=== PATIENT | female | born 2005 | race Hispanic/Latino ===

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

== ENCOUNTER 2024-06-16 21:01 | Inpatient (IN) | payer MEDICAID ==
[~2024-06-16] VITALS: Ht 167.6 cm; Wt 94.8 kg
[~2024-06-16 21:01] MED LIST: ONDA-243 PO; PREN-61 PO
[2024-06-16 21:59] LABS: APPEARANCE,URINE CLOUDY (CLEAR); BILIRUBIN,URINE NEGATIVE (NEGATIVE); COLOR,URINE LIGHT-YELLOW (YELLOW); GLUCOSE, URINE (UA) NEGATIVE (NEGATIVE); KETONES,URINE NEGATIVE (NEGATIVE); LEUKOCYTE ESTERASE ,URINE 25 Leu/uL (NEGATIVE); NITRATE,URINE NEGATIVE (NEGATIVE); OCCULT BLOOD,URINE SMALL (NEGATIVE); PH,URINE 6.5 (5.0-8.0); PROTEIN,URINE 20 mg/dL (NEGATIVE); UROBILINOGEN,URINE 0.2 mg/dL (0.2-1.0)
[2024-06-16] MEDS ORDERED: CALCIUM GLUC 1GM/10ML VIAL IVPB PRN (22:00)
[2024-06-16] MEDS ORDERED: LACTATED RINGERS 1000ML 1,000 ML IV SCH (22:00)
[2024-06-16 22:06] LABS: AMPHET/METH SCREEN,URINE NEGATIVE (NEGATIVE); BARBITURATE SCREEN, URINE NEGATIVE (NEGATIVE); BENZODIAZEPINES SCREEN,URINE NEGATIVE (NEGATIVE); CANNABINOID SCREEN,URINE POSITIVE (NEGATIVE); COCAINE SCREEN,URINE POSITIVE (NEGATIVE); OPIATE SCREEN,URINE NEGATIVE (NEGATIVE); PHENCYCLIDINE SCREEN,URINE NEGATIVE (NEGATIVE)
[2024-06-16 22:19] LABS: BASOPHILS # (AUTO) 0.05 K/uL (0.00-0.20); BASOPHILS % (AUTO) 0.5 % (0.0-5.0); EOSINOPHILS # (AUTO) 0.16 K/uL (0.00-0.70); EOSINOPHILS % (AUTO) 1.6 % (0.0-8.0); HEMATOCRIT 34.3 % (36-48); IMMATURE GRANULOCYTE ABSOLUTE 0.04 K/uL (0-1); LYMPHOCYTES # (AUTO) 2.1 K/uL (1.0-4.8); LYMPHOCYTES % (AUTO) 20.7 % (21.0-51.0); MEAN CORPUSCULAR HEMOGLOBIN 29.1 pg (27.0-33.0); MEAN CORPUSCULAR HGB CONC 32.9 g/dL (32.0-36.0); MEAN CORPUSCULAR VOLUME 88.4 fL (80-100); MONOCYTES # (AUTO) 0.8 K/uL (0.1-1.0); MONOCYTES % (AUTO) 8.2 % (3.0-13.0); NEUTROPHILS # (AUTO) 6.8 K/uL (1.8-7.7); NEUTROPHILS % (AUTO) 68.6 % (40.0-77.0); PLATELET COUNT (AUTO) 193 K/uL (130-400); RED BLOOD CELL COUNT(AUTO) 3.88 MIL/uL (4.00-5.50); RED CELL DISTRIBUTION WIDTH 17.3 % (11.0-15.5)
[2024-06-16] MEDS: LACTATED RINGERS 1000ML 1,000 ML IV SCH (22:30)
[2024-06-16] MEDS: ceFAZolin SODIUM 2 GM VIAL ONE (22:32)
[2024-06-16 22:36] LABS: CREATININE 0.5 mg/dL (0.5-1.0); POTASSIUM 3.9 mmol/L (3.5-5.1)
[2024-06-16 22:37] LABS: FIBRINOGEN 442 mg/dL (180-350)
[2024-06-16 22:38] LABS: INR <= 0.93 (0.85-1.15); PROTHROMBIN TIME 9.6 SEC (9.6-11.6)
[2024-06-16 22:39] LABS: PARTIAL THROMBOPLASTIN TIME 25.3 SEC (26.3-35.5)
[2024-06-16 22:41] LABS: ALBUMIN 2.4 g/dL (3.5-5.0); BILIRUBIN,DIRECT 0.1 mg/dL (0.0-0.3); BILIRUBIN,TOTAL 0.2 mg/dL (0.2-1.0); TOTAL PROTEIN, SERUM 6.5 g/dL (6.0-8.3); URIC ACID 5.1 mg/dL (2.6-7.2)
[2024-06-16 22:43] LABS: ADD UA MICROSCOPIC YES
[2024-06-16 22:47] LABS: MUCUS,URINE RARE LPF (None Seen); RBC,URINE 26-50 /HPF (0-1); SQUAMOUS EPITHELIAL CELL,UR FEW /HPF (0-2)
[2024-06-16] MEDS ORDERED: morPHINE PF 100MG/10ML AMP IV ONE (22:58)
[2024-06-16] MEDS ORDERED: GLYCOPYRROLATE 0.2 MG/ML 5 ML VIAL ONE (23:12)
[2024-06-16 23:16] LABS: D-DIMER 1090 ng/mL (0-500)
[2024-06-17] MEDS ORDERED: DEXTROSE 5 %-0.45 % NACL 1,000 ML IV PRN (01:30)
[2024-06-17] MEDS ORDERED: PROMETHAZINE HCL 25 MG/ML 1ML AMPULE IM PRN (01:30)
[2024-06-17] MEDS ORDERED: MEPERIDINE-PF 75 MG/ML SYG IM PRN (01:30)
[2024-06-17] MEDS: CALDOLOR 800MG+NS 250ML 250 ML IV PRN (01:38)
[2024-06-17] MEDS: OXYTOCIN-LR 30 UNITS/500ML 500 ML IV PRN (01:40)
[2024-06-17 03:26] LABS: HIV 1&2 ANTIBODY Non-Reactive (Negative); HIV-1 p24 Antigen Non-Reactive (Negative)
[2024-06-17 03:47] LABS: RAPID PLASMA REAGIN NONREACTIVE (NONREACTIVE)
[2024-06-17] MEDS: MAGNESIUM 4GM PREMIX 100ML 100 ML IV PRN (05:19)
[2024-06-17] MEDS: LAbetaLOL 20MG VIAL IV PRN (05:21)
[2024-06-17] MEDS: ceFAZolin SODIUM 1 GM VIAL IVPB PRN (05:24)
[2024-06-17] MEDS: MAGNESIUM SULFATE 40GM/1000ML 1,000 ML IV SCH (05:28)
[2024-06-17] MEDS ORDERED: LANOLIN 30GM OINTMENT TP PRN (05:30)
[2024-06-17] MEDS ORDERED: BisaCODYL 10 MG SUPP.RECT RC PRN (05:30)
[2024-06-17] MEDS: LAbetaLOL 20MG VIAL ONE (07:24)
[2024-06-17] MEDS: CALDOLOR 800MG+NS 250ML 250 ML IV ONE (07:49)
[2024-06-17] MEDS ORDERED: CALDOLOR 800MG+NS 250ML 250 ML IV SCH (09:30)
[2024-06-17] MEDS: acetaMINOPHEN 500 MG TABLET PO PRN (10:39)
[2024-06-17] MEDS: LAbetaLOL HCL 100 MG TABLET PO SCH (12:42)
[2024-06-17] MEDS: CALDOLOR 800MG+NS 250ML 250 ML IV SCH (15:32)
[2024-06-17] MEDS: SIMETHICONE 80 MG TAB.CHEW PO PRN (19:44)
[2024-06-18] MEDS ORDERED: acetaMINOPHEN WITH coDEINE 1 TAB TAB PO PRN
[2024-06-18] MEDS: LAbetaLOL 20MG VIAL IV PRN (01:07)
[2024-06-18 07:11] LABS: HEMATOCRIT 35.3 % (36-48); MEAN CORPUSCULAR HEMOGLOBIN 29.2 pg (27.0-33.0); MEAN CORPUSCULAR HGB CONC 32.3 g/dL (32.0-36.0); MEAN CORPUSCULAR VOLUME 90.3 fL (80-100); RED BLOOD CELL COUNT(AUTO) 3.91 MIL/uL (4.00-5.50); RED CELL DISTRIBUTION WIDTH 17.8 % (11.0-15.5); WHITE BLOOD COUNT (AUTO) 12.4 K/uL (4.8-10.8)
[2024-06-18] MEDS: doCUSate SODIUM 100 MG CAP PO SCH ×2 (08:37→21:28)
[2024-06-18] MEDS: IBUPROFEN 600 MG TABLET PO PRN (11:39)
[2024-06-18] MEDS: LACTATED RINGERS 1000ML 1,000 ML IV ONE (13:50)
[2024-06-18] MEDS: LAbetaLOL HCL 100 MG TABLET PO SCH (14:45)
[2024-06-18] MEDS ORDERED: IBUPROFEN 600 MG TABLET PO PRN (16:00)
[2024-06-18] MEDS ORDERED: LANOLIN 30GM OINTMENT TP PRN (16:00)
[2024-06-18] MEDS ORDERED: HYDROcodone/APAP 5/325 1 TAB TABLET PO PRN ×2 (16:00)
[2024-06-18] MEDS ORDERED: BisaCODYL 10 MG SUPP.RECT RC PRN (16:00)
[2024-06-18 16:20] VITALS: BP 126/67; PULSE 74; RESP 18; TEMP 98.3
[2024-06-18] MEDS: acetaMINOPHEN WITH coDEINE 1 TAB TAB PO PRN (19:24)
[2024-06-18] MEDS: SIMETHICONE 80 MG TAB.CHEW PO PRN (19:27)
[2024-06-18 19:33] VITALS: BP 144/108; PULSE 90; RESP 20; TEMP 98.1
[2024-06-18] MEDS ORDERED: LACTATED RINGERS 1000ML 1,000 ML IV SCH (23:00)
[2024-06-18 23:28] VITALS: BP 159/108; PULSE 75; RESP 19; TEMP 98.1
[2024-06-18 23:35] VITALS: BP 164/106
[2024-06-18 23:52] VITALS: BP 161/108
[2024-06-19] VITALS (16 sets, daily range): BP systolic 110–169; BP diastolic 59–96; PULSE 70–92; RESP 16–19; TEMP 98–98.7
[2024-06-19] MEDS ORDERED: LACTATED RINGERS 1000ML 1,000 ML IV SCH
[2024-06-19] MEDS: hydrALAZine 20MG/ML VIAL ONE (02:36)
[2024-06-19] MEDS: hydrALAZine 20MG/ML VIAL IV ONE ×2 (02:38→03:38)
[2024-06-19] MEDS: 0.9%NACL 10ML VIAL IVP PRN (19:35)
[2024-06-19] MEDS: NIFEDIPINE ER 30 MG TAB PO SCH (19:35)
[2024-06-20 02:44] VITALS: BP 153/78; PULSE 76; RESP 17; TEMP 98.2
[2024-06-20] MEDS: acetaMINOPHEN 500 MG TABLET PO PRN (02:50)
[2024-06-20 06:09] VITALS: BP 137/79; PULSE 69; RESP 16; TEMP 98
[2024-06-20 07:15] VITALS: BP 139/87; PULSE 77; RESP 18; TEMP 98.1
[2024-06-20 11:20] VITALS: BP 121/66; PULSE 75; RESP 18; TEMP 98
== END 2024-06-20 14:00 | disposition home or self-care (01) | DRG 540 ==
LOC: EDH 21:01 → LDH 21:02 → OBSVTOIN 21:02 → WSH 06-18 16:20
PROVIDERS: ADMIT Internal Medicine; ATTEND Internal Medicine
PROC: 10D00Z1 Extraction of Products of Conception, Low, Open Approach (ICD-10-PCS; principal; 2024-06-16 23:16)
DX: O14.14 Severe pre-eclampsia complicating childbirth (principal); O99.324 Drug use complicating childbirth; O34.211 Maternal care for low transverse scar from previous cesarean delivery; Z37.0 Single live birth; Z3A.37 37 weeks gestation of pregnancy; F12.10 Cannabis abuse, uncomplicated
CPT/HCPCS: 36415; 59510; 80053; 80076; 80305; 81001; 82248; 83735; 84550; 85025; 85027; 85370; 85378; 85384; 85610; 85730; 86592; 86701; 86850; 86900; 86901; 87340; 87390; A4606; G0378; J0360; J0690; J1741; J2274; J3475; J3490; J7120; A4248